=== PATIENT | male | born 1965 | race Caucasian/White ===

== ENCOUNTER 2023-03-27 20:44 | Emergency (ER) | payer OTHER ==
[~2023-03-27] VITALS: Ht 185.4 cm; Wt 139.8 kg
[~2023-03-27 20:44] MED LIST: AMLO10 PO; ATOR40TA PO; BUDE6HFA INH; Crutch1 EACH MISC; LOVA40 PO; METO50 PO; Percocet 5-3251 EACH PO; QVAR7.3 G1 IH; Ventolin/Prove6.7 GM INH; ZESTRIL40 MG PO
[2023-03-27 20:51] VITALS: BP 186/114
[2023-03-27] MEDS ORDERED: OXYC5 PO (22:53)
== END 2023-03-27 23:24 | disposition home or self-care (01) ==
LOC: ER 20:44
DX: S52.571A Other intraarticular fracture of lower end of right radius, initial encounter for closed fracture (principal); S52.611A Displaced fracture of right ulna styloid process, initial encounter for closed fracture; W01.0XXA Fall on same level from slipping, tripping and stumbling without subsequent striking against object, initial encounter; F17.210 Nicotine dependence, cigarettes, uncomplicated; I10 Essential (primary) hypertension; E78.5 Hyperlipidemia, unspecified; I25.10 Atherosclerotic heart disease of native coronary artery without angina pectoris; Z88.0 Allergy status to penicillin; Z79.899 Other long term (current) drug therapy
CPT/HCPCS: 29125; 73090; 99283-25; A9270

== ENCOUNTER 2023-04-02 12:09 | Day surgery (SDC) | payer OTHER ==
[~2023-04-02] VITALS: Ht 182.9 cm; Wt 142.6 kg
[2023-04-02] VITALS (19 sets, daily range): BP systolic 178–231; BP diastolic 46–144
[~2023-04-02 12:09] MED LIST changes: +OXYC5 PO
--- NOTE | 2023-04-02 13:40 | NUR ---
LATE ENTRY FROM 1304. PT HAS ELEVATED BP PREOPERATIVELY. DR. MONACO AND DR. KERNS NOTIFIED. PT ADMITS TO NOT TAKING ANY PRESCRIBED BP MEDICATIONS DUE TO THE SIDE EFFECTS. DR. MONACO GAVE VERBAL ORDERS TO ADMINISTER LABETOLOL 5MG Q5 MINUTES MAX 20 MG. TITRATE TO 20MG UNTIL SBP IS <160 AND DBP IS <90.
--- NOTE | 2023-04-02 13:52 | NUR ---
Ambulatory in Day SurgeryPre-Op teaching done. Pt verbalizes understanding. History, Chart, Medications and Allergies reviewed before start of procedure.Patient confirms NPO status and agrees with scheduled surgery. Patient States Post-Procedure ride home has been arranged.
--- NOTE | 2023-04-02 14:04 | NUR ---
H&P NOT COMPLETED PT HAS BECOME VERY IRRITATED AT BEING ASKED INVASIVE QUESTIONS. PT STATES "I WOUNDN'T BE HERE RIGHT NOW IF IT WEREN'T FOR MY BROKEN ARM", IN REGARDS TO SEVERAL HEALTH QUESTIONS AND MEDICATION H/O PT STATES "I STOPPED TAKING ALL THAT SH*T AT LONG TIME AGO, I DON'T GO SEE NO DOCTORS"
--- NOTE | 2023-04-02 14:43 | NUR ---
History, Chart, Medications and Allergies reviewed before start of procedure. Patient confirms NPO status and agrees with scheduled surgery. Pre-Op teaching done. Pt verbalizes understanding. DR. WATTS CONSENTING PT TO AXILLARY NERVE BLOCK. TIME OUT DONE AT [address] WATTS DOING AXILLARY NERVE BLOCK IN [facility].
--- NOTE | 2023-04-02 15:25 | NUR ---
04/02/23 1525 Esme Ibarra PRIOR TO PREPPING PATIENTS RIGHT ARM, NOTED BRUISING AROUND RIGHT ELBOW AND SMALL LACERATIONS ON RIGHT FOREARM. AND NOTIFIED.
--- NOTE | 2023-04-02 17:53 | NUR ---
Into step via [facility]ler. Pt reports 8/10 right wrist pain. Pt states that his right arm is numb, but he still feels "severe" pain to right wrist. Tejinder wrap intact to right wrist-c/d/i. Pt is audibly wheezy. Sats 91-95% on ra. BP 223/130. Pt medicated with Lisinopril 40 mg PO for htn just prior to transfer to [facility].
--- NOTE | 2023-04-02 18:15 | NUR ---
Pt verbalizing concern that his rx for pain med will not be filled tonight as [facility] is closed. Pt stated " I guess lead will take care of it!" Pt denies suicidal ideation, but states that he did not recieve adequate pain control with his last procedure. Pt states that his mother had to buy meds "on the black market!" Ivelisse Rodriguez Rn phoned Dr. Mandujano and Rx sent to [facility] pharmacy. Sandie Oviedo discussed discharge instructions including the fact that pt is at high risk for a stroke due to HTN. Pt encouraged to follow up with his primary care in order to resume antihypertensive medications. Discussed symptoms of stroke with pt and his mother. Pt verbalizes understanding.Discharged to home, out via wheelchair with belongings and discharge instructions on hand.
== END 2023-04-02 18:15 | disposition home or self-care (01) ==
LOC: ORSCMMR 12:09 → ORD 12:09 → ORSCMMR 12:10 → ORD 18:15
PROVIDERS: Orthopaedic Surgery
PROC: 0PSH04Z Reposition Right Radius with Internal Fixation Device, Open Approach (ICD-10-PCS; principal; 2023-04-02 14:30)
DX: S52.501A Unspecified fracture of the lower end of right radius, initial encounter for closed fracture (principal); W18.30XA Fall on same level, unspecified, initial encounter; I10 Essential (primary) hypertension; G47.33 Obstructive sleep apnea (adult) (pediatric); J44.9 Chronic obstructive pulmonary disease, unspecified; F17.210 Nicotine dependence, cigarettes, uncomplicated; E66.01 Morbid (severe) obesity due to excess calories; Z68.41 Body mass index [BMI] 40.0-44.9, adult; Z79.899 Other long term (current) drug therapy
CPT/HCPCS: A9270; C1713; J0360; J0690; J1100; J1170; J1885; J2250; J2371; J2405; J2704; J3010; J7120

== ENCOUNTER → 2024-01-23 | Outpatient (CLI) | payer OTHER ==
[2024-01-23 19:45] LABS: BASOPHILS ABSOLUTE AUTO 0.06 K/mm3 (0.00-0.23); BASOPHILS PERCENT AUTO 1 % (0-2); EOSINOPHILS ABSOLUTE AUTO 0.14 K/mm3 (0.00-0.68); EOSINOPHILS PERCENT AUTO 1 % (0-6); Hematocrit 45.3 % (37.0-53.0); Hemoglobin 14.9 g/dL (13.5-17.5); IMMATURE GRAN ABSOLUTE AUTO 0.02 K/mm3 (0.00-0.10); IMMATURE GRAN PERCENT AUTO 0 % (0-1); LYMPHOCYTES ABSOLUTE AUTO 1.91 K/mm3 (0.84-5.20); LYMPHOCYTES PERCENT AUTO 19 % (21-46); MONOCYTES ABSOLUTE AUTO 1.01 K/mm3 (0.16-1.47); MONOCYTES PERCENT AUTO 10 % (4-13); Mean Corpuscular HGB 28.7 pg (26.0-34.0); Mean Corpuscular HGB Conc 32.9 g/dL (31.5-36.5); Mean Corpuscular Volume 87 fL (80-100); Mean Platelet Volume 10.4 fL (9.1-12.4); NEUTROPHILS ABSOLUTE AUTO 7.04 K/mm3 (1.96-9.15); NEUTROPHILS PERCENT AUTO 69 % (41-73); Platelet Count 371 K/mm3 (150-400); RDW Coefficient Variation 14.6 % (11.7-14.2); RDW Standard Deviation 46.5 fL (35.1-46.3); Red Blood Cell Count 5.19 M/mm3 (4.30-5.90); White Blood Cell Count 10.18 K/mm3 (4.00-11.30)
[2024-01-23 19:51] LABS: Alanine Aminotransfer (ALT/SGP 30 U/L (12-78); Albumin, Blood 2.5 g/dL (3.4-5.0); Albumin/Globulin Ratio 0.5 (0.8-1.8); Alk Phos 79 U/L (50-136); Anion Gap 7 mmol/L (3-11); Aspartate Aminotrans (AST/SGOT 21 U/L (12-37); Bilirubin, Total 0.3 mg/dL (0.1-1.0); Blood Urea Nitrogen 18 mg/dL (8-24); Bun/Creatinine Ratio 14.2 (12.0-20.0); CHOL/HDL RATIO 3.9; CO2, Blood 28 mmol/L (21-32); Calcium, Blood 8.9 mg/dL (8.5-10.1); Chloride, Blood 107 mmol/L (98-108); Cholesterol 251 mg/dL (50-200); Creatinine, Blood 1.27 mg/dL (0.60-1.20); Globulin, Blood 4.7 g/dL (2.2-4.0); Glomerular Filtration Rate 65 (60-); Glucose, Blood 117 mg/dL (70-99); HDL Cholesterol 64 mg/dL (>39); LDL/HDL RATIO 2.5; Low Density Lipoprotein Chol 160 mg/dL (0-110); Potassium, Blood 3.6 mmol/L (3.5-5.5); Sodium, Blood 138 mmol/L (136-145); Total Protein, Blood 7.2 g/dL (6.4-8.2); Triglycerides 133 mg/dL (30-160); Very Low Density Lipoprot Chol 26 mg/dL (6-32)
== END | disposition home or self-care (01) ==
LOC: LAB SHORT 18:09 → LAB 18:09
PROVIDERS: Nurse Practitioner Family
DX: Z12.5 Encounter for screening for malignant neoplasm of prostate (principal); Z13.220 Encounter for screening for lipoid disorders; I10 Essential (primary) hypertension
CPT/HCPCS: 80053; 80061; 83880; 85025; G0103

== ENCOUNTER → 2024-01-30 | Outpatient (CLI) | payer OTHER ==
[2024-01-30 19:30] LABS: Hematocrit 44.7 % (37.0-53.0); Hemoglobin 14.8 g/dL (13.5-17.5); Mean Corpuscular HGB 29.2 pg (26.0-34.0); Mean Corpuscular HGB Conc 33.1 g/dL (31.5-36.5); Mean Corpuscular Volume 88 fL (80-100); Mean Platelet Volume 10.5 fL (9.1-12.4); Platelet Count 326 K/mm3 (150-400); RDW Coefficient Variation 14.7 % (11.7-14.2); RDW Standard Deviation 48.2 fL (35.1-46.3); Red Blood Cell Count 5.06 M/mm3 (4.30-5.90); White Blood Cell Count 7.84 K/mm3 (4.00-11.30)
[2024-01-30 19:55] LABS: BASOPHILS ABSOLUTE MAN 0.07 K/mm3 (0.00-0.23); BASOPHILS PERCENT MAN 1 % (0-2); EOSINOPHILS ABSOLUTE MAN 0.23 K/mm3 (0.00-0.68); EOSINOPHILS PERCENT MAN 3 % (0-6); LYMPHOCYTES ABSOLUTE MAN 2.66 K/mm3 (0.84-5.20); LYMPHOCYTES PERCENT MAN 34 % (21-46); MONOCYTES ABSOLUTE MAN 0.62 K/mm3 (0.16-1.47); MONOCYTES PERCENT MAN 8 % (4-13); NEUTROPHILS ABSOLUTE MAN 4.23 K/mm3 (1.96-9.15); SEG NEUTROPHILS PERCENT MAN 54 % (41-73); TOTAL CELLS COUNTED 100
[2024-01-30 20:06] LABS: Alanine Aminotransfer (ALT/SGP 37 U/L (12-78); Albumin, Blood 2.6 g/dL (3.4-5.0); Albumin/Globulin Ratio 0.6 (0.8-1.8); Alk Phos 76 U/L (50-136); Aspartate Aminotrans (AST/SGOT 26 U/L (12-37); Bilirubin, Direct <0.1 mg/dL (0.0-0.3); Bilirubin, Indirect Unable to Calculate mg/dL (0.1-0.7); Bilirubin, Total 0.2 mg/dL (0.1-1.0); Globulin, Blood 4.5 g/dL (2.2-4.0); Total Protein, Blood 7.1 g/dL (6.4-8.2)
== END ==
LOC: LAB SHORT 16:15 → LAB 16:15
PROVIDERS: Nurse Practitioner Family
DX: R89.9 Unspecified abnormal finding in specimens from other organs, systems and tissues (principal)
CPT/HCPCS: 80076; 85007; 85027

== ENCOUNTER → 2024-08-25 | Outpatient (CLI) | payer OTHER ==
[2024-08-29 16:45] LABS: CREATININE,URINE - PER 24H 2128 mg/d (800-2100); CREATININE,URINE - PER VOLUME 152 mg/dL; DOPAMINE,URINE - PER 24H 277 ug/d (71-485); DOPAMINE,URINE - PER VOLUME 198 ug/L; DOPAMINE,URINE - RATIO TO CRT 130 ug/g CRT (0-250); EPINEPHRINE,URINE - PER 24H 27 ug/d (1-14); EPINEPHRINE,URINE - PER VOLUME 19 ug/L; EPINEPHRINE,URN - RATIO TO CRT 12 ug/g CRT (0-20); HOURS COLLECTED 24 hr; NOREPINEPHRINE,UR - PER VOLUME 264 ug/L; NOREPINEPHRINE,URINE - PER 24H 370 ug/d (14-120); NOREPINEPHRINE,URN/CRT RATIO 174 ug/g CRT (0-45); TOTAL VOLUME 1400 mL
== END | disposition home or self-care (01) ==
LOC: LAB 14:56 → LAB SHORT 14:56 → LAB FUT 05-07 13:50
PROVIDERS: Hospitalist
DX: I10 Essential (primary) hypertension (principal); D49.7 Neoplasm of unspecified behavior of endocrine glands and other parts of nervous system; R35.0 Frequency of micturition
CPT/HCPCS: 81050; 82384

== ENCOUNTER → 2024-09-14 | Outpatient (CLI) | payer OTHER | LOC: LAB SHORT 18:25 → LAB 18:25 | DX: R42 Dizziness and giddiness (principal); R39.9 Unspecified symptoms and signs involving the genitourinary system | CPT/HCPCS: 83880; 87086 ==

== ENCOUNTER 2025-04-04 11:53 | Emergency (ER) | payer OTHER ==
[~2025-04-04] VITALS: Ht 185.4 cm; Wt 119.0 kg
[2025-04-04 12:39] VITALS: BP 178/140
[2025-04-04 13:33] LABS: BASOPHILS ABSOLUTE AUTO 0.06 K/mm3 (0.00-0.23); BASOPHILS PERCENT AUTO 0 % (0-2); EOSINOPHILS ABSOLUTE AUTO 0.10 K/mm3 (0.00-0.68); EOSINOPHILS PERCENT AUTO 1 % (0-6); Hematocrit 46.6 % (37.0-53.0); Hemoglobin 15.7 g/dL (13.5-17.5); IMMATURE GRAN ABSOLUTE AUTO 0.04 K/mm3 (0.00-0.10); IMMATURE GRAN PERCENT AUTO 0 % (0-1); LYMPHOCYTES ABSOLUTE AUTO 1.66 K/mm3 (0.84-5.20); LYMPHOCYTES PERCENT AUTO 12 % (21-46); MONOCYTES ABSOLUTE AUTO 1.32 K/mm3 (0.16-1.47); MONOCYTES PERCENT AUTO 10 % (4-13); Mean Corpuscular HGB Conc 33.7 g/dL (31.5-36.5); Mean Corpuscular Volume 88 fL (80-100); NEUTROPHILS ABSOLUTE AUTO 10.45 K/mm3 (1.96-9.15); NEUTROPHILS PERCENT AUTO 77 % (41-73); NRBC ABSOLUTE 0.00 K/mm3 (0.00-0.02); NRBC Auto 0.0 /100 WBC (0.0-0.2); Platelet Count 332 K/mm3 (150-400); RDW Coefficient Variation 14.5 % (11.7-14.2); RDW Standard Deviation 46.6 fL (35.1-46.3)
[2025-04-04 13:56] LABS: Alanine Aminotransfer (ALT/SGP 19.0 U/L (12-78); Albumin, Blood 2.3 g/dL (3.4-5.0); Albumin/Globulin Ratio 0.5 (0.8-1.8); Anion Gap 5.0 mmol/L (3-11); Aspartate Aminotrans (AST/SGOT 17.0 U/L (12-37); Bilirubin, Total 0.4 mg/dL (0.1-1.0); Blood Urea Nitrogen 9.0 mg/dL (8-24); CO2, Blood 28.0 mmol/L (21-32); Calcium, Blood 8.9 mg/dL (8.5-10.1); Chloride, Blood 106.0 mmol/L (98-108); Creatinine, Blood 1.11 mg/dL (0.60-1.20); Globulin, Blood 4.9 g/dL (2.2-4.0); Glucose, Blood 124.0 mg/dL (70-99); Potassium, Blood 3.4 mmol/L (3.5-5.5); Sodium, Blood 136.0 mmol/L (136-145); Total Protein, Blood 7.2 g/dL (6.4-8.2)
== END 2025-04-04 16:20 | disposition left against medical advice (07) ==
LOC: ER 11:53
PROVIDERS: Student in an Organized Health Care Education/Training Program
DX: L03.113 Cellulitis of right upper limb (principal); M70.21 Olecranon bursitis, right elbow; E78.5 Hyperlipidemia, unspecified; I25.10 Atherosclerotic heart disease of native coronary artery without angina pectoris; J44.9 Chronic obstructive pulmonary disease, unspecified; I11.0 Hypertensive heart disease with heart failure; I50.9 Heart failure, unspecified; T50.906A Underdosing of unspecified drugs, medicaments and biological substances, initial encounter; F17.210 Nicotine dependence, cigarettes, uncomplicated; Z91.148 Patient's other noncompliance with medication regimen for other reason; Z53.29 Procedure and treatment not carried out because of patient's decision for other reasons
CPT/HCPCS: 73201; 80053; 83605; 84484; 85025; 93971; 99284-25; Q9967